=== PATIENT | male | born 1970 | race Caucasian/White ===

== ENCOUNTER 2017-05-12 06:19 | Day surgery (SDC) | payer BC ==
[~2017-05-12] VITALS: Ht 162.6 cm; Wt 65.0 kg
[~2017-05-12 06:19] MED LIST: NO HOME MEDICATIONS
[2017-05-12 06:36] VITALS: BP 114/80; PULSE 68; TEMP 97
[2017-05-12 07:55] VITALS: BP 106/66; PULSE 65; TEMP 96.7
[2017-05-12 08:15] VITALS: BP 104/71; PULSE 52
[2017-05-12 08:30] VITALS: BP 103/69; PULSE 50
[2017-05-12 08:32] VITALS: BP 106/66; PULSE 65
== END 2017-05-12 08:46 | disposition home or self-care (01) ==
LOC: SDCO 06:19
DX: K92.1 Melena (principal); K64.1 Second degree hemorrhoids
CPT/HCPCS: OP; J2250; J2405; J3010; J7030